=== PATIENT | female | born 1985 | race Caucasian/White ===

== ENCOUNTER 2019-07-05 10:40 | Emergency (ER) | payer BC ==
[~2019-07-05 10:40] MED LIST: Sodium Chloride 0.9% 1,000 ML BAG ONE
[2019-07-05 10:59] LABS: Pregnancy Test - Urine (BHCG) Negative (Negative); Pregu Control Background? CLEAR/WHITE (CLR/WHITE); Pregu Control Bar Appear? YES (CONTROL BAR)
[2019-07-05 11:00] LABS: Bilirubin Negative (Negative); Blood, Urine Trace (Negative); Clarity Clear (Clear); Glucose, Urine (Dipstick) Negative (Negative); Leukocyte Negative (Negative); Nitrite Negative (Negative); Protein, Urine (Dipstick) Negative (Neg-Trace); Urobilinogen 0.2 mg/dL (Less than 2)
[2019-07-05] MEDS ORDERED: Morphine 4 MG/ML VIAL ONE (11:01)
[2019-07-05] MEDS ORDERED: Ondansetron PF 4 MG/2 ML Vial ONE (11:01)
[2019-07-05 11:12] LABS: #Basophils 0.1 thou/uL (0.0-0.2); #Eosinphils 0.1 thou/uL (0.0-0.7); #Lymphocytes 1.4 thou/uL (1.20-3.40); #Monocytes 0.5 thou/uL (0.11-0.59); #Neutrophils 4.4 thou/uL (1.40-6.50); %Basophils 1.2 % (0.0-1.0); %Eosinophils 2.2 % (0.0-10.0); %Lymphocytes 21.2 % (21.0-51.0); %Monocytes 8.2 % (0.0-10.0); %Neutrophils 67.2 % (42.0-75.0); Hemoglobin 13.9 g/dL (12.0-16.0); Mean Corpuscular HGB CONC 31.4 g/dL (32.0-36.0); Mean Corpuscular Hemoglobin 29.1 pg (27.0-31.0); Mean Platelet Volume 8.4 fL (7.4-10.4); Platelet Count 288 thou/uL (130-400); RBC Distribution Width 11.3 % (11.5-14.5); Red Blood Cell (RBC) Count 4.78 mill/uL (4.20-5.40); White Blood Cell (WBC) Count 6.5 thou/uL (4.8-10.8)
[2019-07-05 11:22] LABS: BHCG - Serum Negative (NEGATIVE); Pregs Control Background? CLEAR/WHITE (CLR/WHITE); Pregs Control Bar Appear? YES (CONTROL BAR)
[2019-07-05 11:29] LABS: ALT (SGPT) 8 U/L (8-55); AST (SGOT) 11 U/L (5-34); Albumin 4.5 g/dL (3.5-5.0); Alkaline Phosphatase 72 U/L (40-110); Anion Gap 16 mmol/L (10-20); BUN (Urea Nitrogen) 8 mg/dL (7.0-18.7); Bilirubin, Total 0.6 mg/dL (0.2-1.2); Calc. Creatinine Clearance 0 mL/min (70-130); Calcium 9.9 mg/dL (7.8-10.44); Carbon Dioxide 25 mmol/L (22-29); Chloride 104 mmol/L (98-107); Estimated GFR-MDRD 75; Globulin 3.1 g/dL (2.4-3.5); Glucose 102 mg/dL (70-105); Potassium 3.6 mmol/L (3.5-5.1); Protein, Total 7.6 g/dL (6.0-8.3); Sodium 141 mmol/L (136-145)
--- NOTE | 2019-07-05 11:35 | CT ---
CT Stone Protocol History: Left flank pain Comparison: None. Findings: Lung bases are clear. No pericardial effusion. The aortoiliac contour is nonaneurysmal. Mild left hydroureteronephrosis low-grade left perinephric stranding without a calculus appreciated. No renal calculi are appreciated within either collecting system. There are no dilated loops of large or small bowel. The distal to be visualized and appears normal. No free intraperitoneal gas or fluid. There is cholelithiasis without pericholecystic inflammation. Skeleton is unremarkable. Impression: 1. Low-grade left hydroureteronephrosis without calculus appreciated may be sequelae of a recently pa ssed stone. 2. Normal appendix. 3. Cholelithiasis without cholecystitis.
[2019-07-05] MEDS ORDERED: Ketorolac Tromethamine 30 MG/ML VIAL ONE (11:49)
== END 2019-07-05 12:07 | disposition home or self-care (01) ==
LOC: MADERS 10:40
DX: N13.2 Hydronephrosis with renal and ureteral calculous obstruction (principal)
CPT/HCPCS: 74176; 80053; 81003; 81015; 81025; 84703; 85025; 96361; 96374; 96375; J1885; J2270; J2405; J7050